=== PATIENT | female | born 1980 | race Two or more races ===

== ENCOUNTER → 2021-12-08 13:21 | Outpatient (BNVA) | payer OTHER, SELFPAY | PROVIDERS: PCP Internal Medicine; Referring Provider Internal Medicine; Visit Provider Physician Assistant Surgical | DX: Z13.89 Encounter for screening for other disorder (principal) ==

== ENCOUNTER → 2021-12-26 12:04 | Outpatient (BNVA) | payer OTHER, SELFPAY | PROVIDERS: PCP Internal Medicine; Visit Provider Physician Assistant Surgical | DX: Z13.89 Encounter for screening for other disorder (principal) ==

== ENCOUNTER → 2021-12-29 08:12 | Outpatient (BNVA) | payer OTHER, SELFPAY | PROVIDERS: PCP Internal Medicine; Visit Provider Physician Assistant Surgical | DX: E66.9 Obesity, unspecified (principal); Z68.36 Body mass index [BMI] 36.0-36.9, adult | CPT/HCPCS: 99202 ==

== ENCOUNTER 2022-03-06 10:31 | Outpatient (REF) | payer OTHER, SELFPAY ==
--- NOTE | ~2022-03-06 | XR_ITS ---
EXAMINATION: XR CHEST 2 VIEWS CLINICAL INFORMATION: Obesity. COMPARISON: Chest radiographs dated 05/02/2018. TECHNIQUE: Frontal and lateral views of the chest were obtained. FINDINGS: The heart, great vessels, pulmonary vasculature and mediastinum are normal. The lungs show no focal infiltrate, effusion or pneumothorax. There is no acute osseous abnormality. XR/XR chest 2V IMPRESSION: No active cardiopulmonary disease.
--- NOTE | 2022-03-06 11:01 | ECG_ITS ---
Test Reason : OBESITY Blood Pressure : / mmHG Vent. Rate : 071 BPM Atrial Rate : 071 BPM P-R Int : 176 ms QRS Dur : 076 ms QT Int : 362 ms P-R-T Axes : 040 038 032 degrees QTc Int : 393 ms Normal sinus rhythm Normal ECG When compared with ECG of 02-MAY-2018 12:35, No significant change was found Referred By: Thad Atkins Electronically Signed By:CAMILLE DRAPER MD
[2022-03-06 11:03] LABS: MANUAL DIFF FLAG NO
[2022-03-06 11:33] LABS: Basophils Absolute Auto 0.1 X10*3/uL (0.0-0.2); Basophils Percent Auto 0.5 % (0-2); Eosinophils Absolute Auto 0.2 X10*3/uL (0.0-0.4); Eosinophils Percent Auto 1.9 % (0-4); Hematocrit 39.7 % (37.0-47.0); Hemoglobin 13.8 g/dl (12.0-16.0); Imm Gran Abs Auto 0.04 X10*3/uL (0.00-0.03); Imm Gran Pct Auto 0.3 % (0.0-0.4); Lymphocytes Absolute Auto 2.4 X10*3/uL (1.2-4.9); Lymphocytes Percent Auto 20.8 % (20-40); Mean Corpuscular HGB Conc 34.8 g/dl (31.0-35.0); Mean Corpuscular Hemoglobin 31.7 pg (27.0-33.0); Mean Corpuscular Volume 91.1 fL (80.0-98.0); Mean Platelet Volume 9.8 fL (9.4-12.3); Monocytes Absolute Auto 0.6 X10*3/uL (0.1-1.2); Monocytes Percent Auto 5.3 % (2-11); Neutrophils Absolute Auto 8.2 x10*3/uL (2.0-8.3); Neutrophils Percent Auto 71.2 % (45-73); Platelet Count 303 X10*3/uL (160-400); Red Blood Count 4.36 X10*6/uL (4.20-5.50); Red Cell Distribution Width 12.6 % (11.0-16.0); White Blood Count 11.5 X10*3/uL (4.8-10.8)
[2022-03-06 11:51] LABS: Estimated Average Glucose 103 mg/dL; Hemoglobin A1c % 5.2 %
[2022-03-06 12:19] LABS: Alanine Aminotransferase 47 U/L (0-31); Albumin Level 4.5 g/dL (3.5-5.0); Alkaline Phosphatase 82 U/L (39-117); Anion Gap 13 (12-20); Aspartate Amino Transferase 27 U/L (5-31); Bilirubin Total 0.2 mg/dL (0.0-1.0); Blood Urea Nitrogen 8 mg/dL (9-16); C Reactive Protein 0.26 mg/dL (< or = 0.50); Calcium 9.2 mg/dL (8.4-10.2); Carbon Dioxide 22 mmol/L (22-29); Chloride 107 mmol/L (96-108); Cholesterol 153 mg/dL; Estimated Glomerular Filt Rate > 60; Glucose Random 93 mg/dL (60-115); HDL Cholesterol 42 mg/dL; Iron 65 mcg/dL (30-160); LDL Cholesterol Calculated 98 mg/dl; Percent Iron Saturation 18 % (15-50); Potassium 3.7 mmol/L (3.3-5.1); Sodium 138 mmol/L (135-145); Total Iron Binding Capacity 354 mcg/dL (228-428); Total Protein 6.7 g/dL (6.5-8.0); Triglycerides 69 mg/dL; Unsaturated Iron Binding 289 ug/dL
[2022-03-06 12:22] LABS: Ferritin 30 ng/mL (10-122); Insulin 75 uU/mL (2-29); TSH reflex Free T4 0.59 uIU/mL (0.32-4.0); Vitamin D 25-OH Total 21.7 ng/mL (>30)
[2022-03-06 13:01] LABS: Folate 19.9 ng/mL (> or = 4.0); Vitamin B12 484 pg/mL (200-900)
[2022-03-07 12:11] LABS: Calcium (PTHI) 9.5 mg/dL (8.6-10.2); PTHI 33 pg/mL (16-77)
[2022-03-09 23:37] LABS: Zinc 73 mcg/dL (60-130)
[2022-03-11 16:01] LABS: Vitamin B1 21 nmol/L (8-30)
[2022-03-11 19:41] LABS: Vitamin A 36 mcg/dL (38-98)
== END 2022-03-06 10:32 | disposition home or self-care (01) ==
LOC: HO.LAB 10:31
PROVIDERS: PCP Internal Medicine; Visit Provider Physician Assistant Surgical
DX: E66.9 Obesity, unspecified (principal)
CPT/HCPCS: 36415; 71046; 80053; 80061; 82306; 82607; 82728; 82746; 83036; 83525; 83540; 83970; 84425; 84443; 84590; 84630; 85025; 86140; 93005

== ENCOUNTER → 2022-03-08 11:00 | Outpatient (BNVA) | payer OTHER, SELFPAY | PROVIDERS: PCP Internal Medicine; Visit Provider Counselor Mental Health | DX: F50.81 Binge eating disorder (principal); F43.10 Post-traumatic stress disorder, unspecified; F32.A Depression, unspecified; E66.9 Obesity, unspecified | CPT/HCPCS: 90791 ==

== ENCOUNTER → 2022-03-15 10:52 | Outpatient (BNVA) | payer OTHER, SELFPAY | PROVIDERS: PCP Internal Medicine; Visit Provider Dietitian, Registered | DX: E66.9 Obesity, unspecified (principal); Z68.34 Body mass index [BMI] 34.0-34.9, adult | CPT/HCPCS: 97802 ==

== ENCOUNTER → 2022-04-06 08:31 | Outpatient (BNVA) | payer OTHER, SELFPAY | PROVIDERS: PCP Internal Medicine; Visit Provider Physician Assistant Surgical | DX: E66.9 Obesity, unspecified (principal) | CPT/HCPCS: 99211 ==

== ENCOUNTER 2022-04-06 09:12 | Outpatient (REF) | payer OTHER, SELFPAY ==
[2022-04-07 11:20] LABS: H Pylori Breath Test Negative (Negative)
== END 2022-04-06 09:13 | disposition home or self-care (01) ==
LOC: CF 09:12
PROVIDERS: PCP Internal Medicine; Referring Provider Physician Assistant Surgical; Visit Provider Physician Assistant Surgical
DX: E66.9 Obesity, unspecified (principal)
CPT/HCPCS: 36415; 83013; 97803

== ENCOUNTER 2022-04-11 08:34 | Outpatient (REF) | payer OTHER, SELFPAY ==
--- NOTE | ~2022-04-11 | FL_ITS ---
EXAMINATION: XR FLUOROSCOPY UPPER GI WITH AIR CLINICAL INFORMATION: Obesity. Preop. COMPARISON: None. TECHNIQUE: Routine upper GI contrast study was performed. FINDINGS: Following oral administration of thick barium and effervescent granules, there is normal propagation of bolus from the oral cavity through the pharynx and esophagus and into the stomach without any evidence of obstruction, narrowing or stricture. On placing patient supine and prone lying, the course, caliber and peristalsis of stomach and the duodenum are normal. The mucosal pattern of the stomach and the duodenum is normal. There is mild gastroesophageal reflux without hiatal hernia. FLUOROSCOPY TIME: 2.5 minutes. DOSE AREA PRODUCT: 39.068 Gy-cm2. FL/FL upper GI w air IMPRESSION: Mild gastroesophageal reflux without hiatal hernia. Otherwise unremarkable upper GI air-contrast study.
== END 2022-04-11 08:35 | disposition home or self-care (01) ==
LOC: HO.US 08:34
PROVIDERS: PCP Internal Medicine; Visit Provider Internal Medicine
DX: Z01.818 Encounter for other preprocedural examination (principal); K21.9 Gastro-esophageal reflux disease without esophagitis; E66.9 Obesity, unspecified
CPT/HCPCS: 74246

== ENCOUNTER → 2022-04-24 11:22 | Outpatient (BNVA) | payer OTHER, SELFPAY | PROVIDERS: PCP Internal Medicine; Referring Provider Physician Assistant Surgical; Visit Provider Dietitian, Registered | DX: E66.9 Obesity, unspecified (principal); Z68.34 Body mass index [BMI] 34.0-34.9, adult | CPT/HCPCS: 97803 ==

== ENCOUNTER → 2022-04-25 11:00 | Outpatient (BNVA) | payer OTHER, SELFPAY | PROVIDERS: PCP Internal Medicine; Referring Provider Physician Assistant Surgical; Visit Provider Counselor Mental Health | DX: F50.81 Binge eating disorder (principal); F43.10 Post-traumatic stress disorder, unspecified; F32.A Depression, unspecified; E66.9 Obesity, unspecified; R45.851 Suicidal ideations | CPT/HCPCS: 90834 ==

== ENCOUNTER → 2023-10-11 10:08 | Outpatient (BNVA) | payer OTHER, SELFPAY | PROVIDERS: PCP Internal Medicine; Visit Provider Physician Assistant ==

== ENCOUNTER 2023-10-30 14:00 | Outpatient (AMB) | payer OTHER, SELFPAY ==
--- NOTE | 2023-10-30 14:07 | A.OFFVIS_ITS ---
Intake VS Expanded 10/30/23 14:15 Height 5 ft 6.5 in Weight 224 lb BMI 35.6 Intake Visit Reasons: re establish MWL BMI 36.1 E Commerce Manager Required: No Allergies bupropion [BUPROPION] Allergy (Unknown, Unverified 10/11/23 10:41) AGITATED fluoxetine [From PROZAC] Adverse Reaction (Severe, Unverified 10/11/23 10:41) SUICIDAL THOUGHTS Prozac Allergy (Unknown, Uncoded 10/11/23 10:41) anaphylaxis Medication List - Last Reconciled 10/30/23 by YOSEPH Schmitt cholecalciferol (vitamin D3) 125 mcg PO DAILY losartan 50 mg PO DAILY sertraline 200 mg (2 x 100 mg) PO DAILY vitamin A palmitate 10,000 units PO DAILY HPI HPI Comments History of Present Illness Details Pt is here to re-start the [facility] Weight [facility] medical weight loss program. She was participating in the Surgical weight loss pathway from December through March 2022 with a weight loss of approximately 12 lb. She is now done with school and now feels as though she can commit to the program more fully. She is trying to get her masters in SW but has taken a break from school for now. She still has her body composition scale. Current weight is 224 pounds with a BMI of 35.6. She has tried multiple methods of weight loss including fad diets and previous SWL program without permanent results. She lives with her son. 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 States her goal is to lose weight and get to 180 pounds. She wakes at:?6 am, and goes to bed at?10 pm. Dinner is at 6 pm. Breakfast: 2-3 eggs, reese or sausage, toast (2) buttered AM snack: Premier protein RTD Lunch: sandwich PM snack: skip or cheese occitan Dinner: potatoes, potato salad, rice w meat, lasagna w rice After dinner: crackers, another plate of dinner Other snacks: cake Liquids: 48 oz water, no soda, no juice Alcohol/marijuana/tobacco intake: no etoh, smoke and eat cannabis 2 x per week, no tobacco Exercise: none, no gym membership, no equipment in her home, can join a gym [facility] Medical History HTN (hypertension) Surgical History History of partial hysterectomy Hx of cosmetic plastic surgery Hx of plastic surgery Hx of laparoscopy Family History Mother Breast cancer Maternal Aunt Cancer of ear Social History Alcohol intake: never Patient Tobacco Use Status: Never used Tobacco Assessment & Plan Assessment & Plan (1) Obesity (BMI 30-39.9): Code(s): E66.9 - Obesity, unspecified Plan: This is a?43 yo female who will re-start in our MWL program. She previously was enrolled in the surgical weight loss program but does not wish to pursue a surgical option at this time. We will arrange for follow-up appointments with myself over the next 3 months. She reports her stated goal is 180 lb. Adequate sleep of 7-8 hours per night discussed, awakening at 6 am and going to bed around 10 pm ? Purchase body composition analyzer scale ([employer]ph[employer] recommended) and check weight weekly. The best time to do this is first thing in the morning after going to the bathroom. 1. Nutritional counseling: Be sure to careful read the number of scoops per shake Start with 1 Celebrate Rebuild shake ([facility] [employer], [employer], [employer]), (2 scoops in 16 oz unsweetened almond milk) at 7am-9am 2 Celebrate protein bars ([employer] bars at [facility] [employer], [employer], [employer]) First bar at 10am-noon Second bar at 2 pm-4 pm Dinner at 6pm (8 forks of protein and 8 forks of salad/vegetables). Meal to include lean meat (beef, fish, pork, turkey, chicken), cooked vegetables or a salad with olive oil and/or fruits (berries, pears, apples, kiwi). Avoid salt, breads, potatoes, rice, pasta, desserts. A cup of fresh berries or an apple or pear or kiwi at 8 pm if you wish. Try to drink 64 oz of water daily and avoid soda and juices. ?2. Each shake would be drunk slowly, like coffee in a period of 2 hours. ?3. Cut each bar in 4 pieces and eat each piece in 30 min ?to make each bar last 2 hours. ?4. I emphasized the importance of measuring accurately the food portion and measure it carefully when serving the food on the plate ?5. The meal portions include 8 full-size forks of meat and 8 full-size forks of salad. You always eat the meat portion but you can replace up to half of the forks of salad/vegetables with rice, potatoes or pasta, or a fruit ?if you like. The less you do it the better weight loss will be. ?6. One full-size fork is what can be scooped on the fork without falling aside and not what can be bit with the fork. Use regular forks like those you find in a typical restaurant. ?7.? Please send me weight measurements as soon as possible and then once a week. Always include your diet and exercise plan. Alternatively come weekly at the office for weight checks and send me the measurements. ?8. Exercise counseling: Begin by watching a stretching for beginners video. Start slowly and begin to stretch your muscles. You should do this before and after each exercise session to prevent injury. Please join [employer] gym near your home. Ask the structural engineering project manager or one of the trainers how to use the machines if you are unfamiliar with them. Start elliptical with a resistance of 2. Increase resistance by 1 every 3 min to your most comfortable resistance with a max resistance of 8. Reduce the resistance by 1 every 3 minutes back down to 2 and repeat cycles for 300 calories. Alternatively, start treadmill with a speed of 3.0 and incline of 0, increasing incline by 1 every 3 minutes to the highest comfortable level (max 6 for now) then decrease in the same fashion. Repeat process to a goal of 300 calories. Goal of 2000 calories burned or more weekly. You may also consider use of the stationary bike. The easiest would be to chose the fat-burn or interval training program on the machine and do this until you reach the 300 calorie goal. Alternatively, you can manually adjust the resistance in a similar fashion as mentioned above, (resistance of 2-8 with a goal speed of 12 mph). Tracking calories is essential. 9. Alternatively start walking outside daily, tracking calories with a goal of 300 calories per day, daily. You can download the [employer]mita [employer] which can track your time, distance and calories while walking outside. You press start in the asmita when you start and then stop when you are finished. 10.? It is important to communicate by text with me weekly 12. Please follow the diet plan exactly, without any change. If you do not like something about the plan or you feel hungry, you need to communicate with me so I can help you revise the plan. You should not change the plan yourself. Text me at [phone] 13. Goal is to lose at least 12-15 pounds in the first month 15. You stated your goal is 180 pounds. This is a lot but you could reach 185 in three months with hard work, dedication and commitment to a new and healthier you. Patient is morbidly obese and is not considered stable at this time.?I spent a total of 70 minutes reviewing/updating records, examining the patient and counseling the patient on weight management as detailed above. Telehealth Telehealth Location of provider rendering services: practice address Location of patient: address on file Patient Identification confirmed using: Name, : Yes Telehealth method: voice only Patient verbally consented to treatment: Yes Patient verbally consented to billing insurance company: Yes Patient informed of any privacy concerns related to visit: Yes Minutes spent on Phone/Video with Pt.: 45 Coding Level of Care Code Tele Est Pt Level 5 (94901) Diagnoses Obesity (BMI 30-39.9) E66.9 Time Spent (min) 70
[2023-10-30 14:15] VITALS: BMI 35.6
== END 2023-10-30 15:38 | disposition home or self-care (01) ==
LOC: HO.HBS 14:17
PROVIDERS: PCP Internal Medicine; Visit Provider Physician Assistant Surgical
DX: E66.9 Obesity, unspecified (principal); Z68.35 Body mass index [BMI] 35.0-35.9, adult
CPT/HCPCS: 99215

== ENCOUNTER → 2023-10-30 14:00 | Outpatient (BNVA) | payer OTHER, SELFPAY | PROVIDERS: PCP Internal Medicine; Visit Provider Physician Assistant Surgical ==

== ENCOUNTER 2023-12-04 10:24 | Outpatient (AMB) | payer OTHER, SELFPAY ==
--- NOTE | 2023-12-04 09:59 | MHC.OFFVISWM ---
Intake VS Expanded 12/04/23 10:00 Height 5 ft 6.5 in Weight 225 lb 12.8 oz BMI 35.9 Intake Visit Reasons: (TV) F/U MWL Allergies bupropion [BUPROPION] Allergy (Unknown, Unverified 10/11/23 10:41) AGITATED fluoxetine [From PROZAC] Adverse Reaction (Severe, Unverified 10/11/23 10:41) SUICIDAL THOUGHTS Prozac Allergy (Unknown, Uncoded 10/11/23 10:41) anaphylaxis HPI HPI Comments History of Present Illness Details Patient is a pleasant 43-year-old female who returns to the office today in follow-up. She was initially a part of the surgical weight loss pathway but decided to switch to medical weight loss. She was last seen 10/30/2023 with a weight of 224 lb and a BMI of 35.6. Weight today is 225.8 lb with a BMI of 35.9. She states she doesn't like the meal plan. she has the shakes and bars. She has difficulty following the structure of the plans. She is following it 2 of 7 days. On the days that she can't follow it she skips meals and she admits to poor time management. She feels as though her anxiety is keeping her up at night. She is still drinking the Premier protein RTD shakes. She would eat 1/2 a bar at a time not as directed. She was also not counting forkfuls at night meal plan: 1 Celebrate Rebuild shake ([facility] [employer], [employer]), (2 scoops in 16 oz unsweetened almond milk) at 7am-9am 2 Celebrate protein bars (Celebrate bars at [facility] [employer], [employer]) First bar at 10am-noon Second bar at 2 pm-4 pm Dinner at 6pm (8 forks of protein and 8 forks of salad/vegetables). A cup of fresh berries or an apple or pear or kiwi at 8 pm if you wish. Drinking 48 oz water exercise plan: Walking outside 2-3 x per week. Not tracking calories, 40 minutes stops and talks w people. COUNTS INCLUDE [facility] BEDS AT THE [facility] Medical History HTN (hypertension) Surgical History History of partial hysterectomy Hx of cosmetic plastic surgery Hx of plastic surgery Hx of laparoscopy Family History Mother Breast cancer Maternal Aunt Cancer of ear Social History Alcohol intake: never Patient Tobacco Use Status: Never used Tobacco Assessment & Plan Assessment & Plan (1) Obesity (BMI 30-39.9): Code(s): E66.9 - Obesity, unspecified Plan: Patient admittedly states that she has difficulty with time management and the structure of the current meal plan and exercise plan is not working for her. She will be referred to outpatient dietary services for continued management of obesity. She may return to the office in the future if she wishes. Telehealth Telehealth Location of provider rendering services: practice address Location of patient: address on file Patient Identification confirmed using: Name, : Yes Telehealth method: voice only Patient verbally consented to treatment: Yes Patient verbally consented to billing insurance company: Yes Patient informed of any privacy concerns related to visit: Yes Minutes spent on Phone/Video with Pt.: 20 Coding Level of Care Code Tele Est Pt Level 3 (91402) Diagnoses Obesity (BMI 30-39.9) E66.9 Time Spent (min) 20
[2023-12-04 10:00] VITALS: BMI 35.9
== END 2023-12-04 10:25 | disposition home or self-care (01) ==
LOC: HO.HBS 10:24
PROVIDERS: PCP Internal Medicine; Visit Provider Physician Assistant Surgical
DX: E66.9 Obesity, unspecified (principal)
CPT/HCPCS: 99213

== ENCOUNTER → 2023-12-04 10:24 | Outpatient (BNVA) | payer OTHER, SELFPAY | PROVIDERS: PCP Internal Medicine; Visit Provider Physician Assistant Surgical | DX: E66.9 Obesity, unspecified (principal) ==